=== PATIENT | female | born 1990 | race Caucasian/White ===

== ENCOUNTER 2016-08-02 10:36 | Emergency (ER) | payer OTHER ==
[2016-08-02 13:57] LABS: BASOPHIL % 0.3 % (0-2); PLATELET COUNT 340 x10^3mcL (130-400)
[2016-08-02 14:00] LABS: CALCIUM 9.1 mg/dL (8.5-10.1); CARBON DIOXIDE 28.6 mmol/L (21-32); CHLORIDE SERUM 104 mmol/L (98-107); CREATININE SERUM 0.5 mg/dL (0.6-1.0); GFR1 > 60 mL/min; GLUCOSE SERUM 86 mg/dL (74-106); SODIUM SERUM 140 mmol/L (136-145)
[2016-08-02 14:13] LABS: ALBUMIN 4.2 g/dL (3.4-5.0); ALKALINE PHOSPHATASE 63 U/L (46-116); ALT/SGPT 19 U/L (14-59); AST/SGOT 9 U/L (15-37); BILIRUBIN TOTAL 0.46 mg/dL (0.20-1.00); MAGNESIUM 2.2 mg/dL (1.8-2.4); T4(THYROXINE) 7.5 ug/dL (4.7-13.3)
[2016-08-02 14:20] LABS: TOTAL PROTEIN, SERUM 8.4 g/dL (6.4-8.2)
[2016-08-02 15:08] VITALS: BP 114/63
== END 2016-08-02 15:08 | disposition home or self-care (01) ==
LOC: ED 10:36
PROVIDERS: Emergency Medicine
DX: R00.2 Palpitations (principal); R07.89 Other chest pain; R03.0 Elevated blood-pressure reading, without diagnosis of hypertension; R11.0 Nausea
CPT/HCPCS: Q0092

== ENCOUNTER 2018-02-04 09:38 | Emergency (ER) | payer OTHER ==
[2018-02-04 09:42] VITALS: Ht 165.1 cm
[2018-02-04 12:22] VITALS: BP 118/69
== END 2018-02-04 12:23 | disposition home or self-care (01) ==
LOC: ED 09:38
DX: L50.8 Other urticaria (principal)
CPT/HCPCS: J1200; J2930

== ENCOUNTER 2019-01-25 17:37 | Emergency (ER) | payer OTHER ==
[~2019-01-25] VITALS: Ht 165.1 cm; Wt 108.4 kg
[2019-01-25 17:41] VITALS: Ht 165.1 cm; Wt 108.4 kg
[2019-01-25 21:23] VITALS: BP 117/64
== END 2019-01-25 21:23 | disposition home or self-care (01) ==
LOC: ED 17:37
DX: O92.6 Galactorrhea (principal); Z98.890 Other specified postprocedural states; Z98.51 Tubal ligation status
CPT/HCPCS: 76641